=== PATIENT | female | born 1955 | race Caucasian/White ===

== ENCOUNTER → 2023-06-11 | Outpatient (CLI) | payer MEDICARE, OTHER ==
[2023-06-11 17:00] LABS: Alanine Aminotransfer (ALT/SGP 31 U/L (12-78); Albumin, Blood 4.3 g/dL (3.4-5.0); Albumin/Globulin Ratio 1.2 (0.8-1.8); Alk Phos 49 U/L (50-136); Anion Gap 10 mmol/L (6-16); Aspartate Aminotrans (AST/SGOT 21 U/L (12-37); Bilirubin, Total 0.3 mg/dL (0.1-1.0); Blood Urea Nitrogen 20 mg/dL (8-24); Bun/Creatinine Ratio 26.9 (12.0-20.0); CHOL/HDL RATIO 1.8; CO2, Blood 25 mmol/L (21-32); Calcium, Blood 9.9 mg/dL (8.5-10.1); Chloride, Blood 104 mmol/L (98-108); Cholesterol 137 mg/dL (50-200); Creatinine, Blood 0.74 mg/dL (0.40-1.00); Globulin, Blood 3.7 g/dL (2.2-4.0); Glomerular Filtration Rate 89 (60-); Glucose, Blood 118 mg/dL (70-99); HDL Cholesterol 75 mg/dL (>39); LDL/HDL RATIO 0.4; Low Density Lipoprotein Chol 32 mg/dL (0-110); Potassium, Blood 3.5 mmol/L (3.5-5.5); Sodium, Blood 139 mmol/L (136-145); Triglycerides 149 mg/dL (30-160); Very Low Density Lipoprot Chol 29 mg/dL (6-32)
== END | disposition home or self-care (01) ==
LOC: LAB SHORT 12:29 → LAB 12:29
PROVIDERS: Physician Assistant
DX: Z11.59 Encounter for screening for other viral diseases (principal); E11.22 Type 2 diabetes mellitus with diabetic chronic kidney disease; N18.9 Chronic kidney disease, unspecified; E78.2 Mixed hyperlipidemia
CPT/HCPCS: 80053; 80061; 83036; 86803

== ENCOUNTER → 2023-07-06 | Outpatient (CLI) | payer MEDICARE, OTHER ==
[2023-07-06 15:29] LABS: Microalb/Creat Ratio UR, Rand 19.194 mg/g (0.000-30.000); Microalbumin, Random Urine 23.8 mg/L (0.000-20.000)
[2023-07-09 11:13] LABS: HEPATITIS C QUANTITATION HCV Not Detected IU/mL (.)
== END | disposition home or self-care (01) ==
LOC: LAB 10:15 → LAB SHORT 10:15
PROVIDERS: Physician Assistant
DX: E11.42 Type 2 diabetes mellitus with diabetic polyneuropathy (principal); E11.22 Type 2 diabetes mellitus with diabetic chronic kidney disease; N18.9 Chronic kidney disease, unspecified; Z86.19 Personal history of other infectious and parasitic diseases
CPT/HCPCS: 82043; 82570

== ENCOUNTER → 2024-09-01 | Outpatient (CLI) | payer OTHER ==
[2024-09-01 17:33] LABS: Creatinine, Urine Random 87.5 mg/dL (27.00-270.00); Microalb/Creat Ratio UR, Rand 17.029 mg/g (0.000-30.000); Microalbumin, Random Urine 14.9 mg/L (0.000-20.000)
== END | disposition home or self-care (01) ==
LOC: LAB SHORT 15:10 → LAB 15:10
PROVIDERS: Physician Assistant
DX: E11.42 Type 2 diabetes mellitus with diabetic polyneuropathy (principal); E11.59 Type 2 diabetes mellitus with other circulatory complications; E11.69 Type 2 diabetes mellitus with other specified complication; E11.22 Type 2 diabetes mellitus with diabetic chronic kidney disease; N18.9 Chronic kidney disease, unspecified
CPT/HCPCS: 82043; 82570

== ENCOUNTER 2025-10-30 16:36 | Emergency (ER) | payer OTHER ==
[~2025-10-30] VITALS: Ht 162.6 cm; Wt 68.0 kg
[2025-10-30] MEDS ORDERED: OxyCODONE 5 mg/Acetamin 325 mg TABLET PO ONE (17:15)
[2025-10-30] MEDS ORDERED: Ondansetron HCl 2 MG / ML 2ML Vial IV ONE (19:45)
[2025-10-30 20:30] VITALS: BP 177/78
[2025-10-30] MEDS ORDERED: Morphine Sulfate 4 MG/1 ML Injection IV ONE (22:05)
== END 2025-10-30 22:29 | disposition short-term general hospital (02) ==
LOC: ER 16:36
DX: S32.434A Nondisplaced fracture of anterior column [iliopubic] of right acetabulum, initial encounter for closed fracture (principal); S32.444A Nondisplaced fracture of posterior column [ilioischial] of right acetabulum, initial encounter for closed fracture; I10 Essential (primary) hypertension; E11.9 Type 2 diabetes mellitus without complications; W01.0XXA Fall on same level from slipping, tripping and stumbling without subsequent striking against object, initial encounter; Z86.79 Personal history of other diseases of the circulatory system
CPT/HCPCS: 72192; 73502; 96374; 96375; 99285-25; A9270; J2270; J2405

== ENCOUNTER 2025-11-13 14:11 | Observation (INO) | payer OTHER ==
[~2025-11-13] VITALS: Ht 162.6 cm; Wt 68.0 kg
[2025-11-13] MEDS ORDERED: NS 1,000 ML IV SCH ×2 (14:40→16:10)
[2025-11-13] MEDS ORDERED: Ondansetron HCl 2 MG / ML 2ML Vial IV ONE (14:40)
[2025-11-13 15:03] LABS: BASOPHILS ABSOLUTE AUTO 0.09 K/mm3 (0.00-0.23); BASOPHILS PERCENT AUTO 1 % (0-2); EOSINOPHILS ABSOLUTE AUTO 0.02 K/mm3 (0.00-0.68); EOSINOPHILS PERCENT AUTO 0 % (0-6); Hematocrit 41.3 % (33.0-51.0); Hemoglobin 14.2 g/dL (11.5-16.0); IMMATURE GRAN ABSOLUTE AUTO 0.16 K/mm3 (0.00-0.10); IMMATURE GRAN PERCENT AUTO 1 % (0-1); LYMPHOCYTES ABSOLUTE AUTO 0.94 K/mm3 (0.84-5.20); LYMPHOCYTES PERCENT AUTO 5 % (21-46); MONOCYTES ABSOLUTE AUTO 0.77 K/mm3 (0.16-1.47); MONOCYTES PERCENT AUTO 5 % (4-13); Mean Corpuscular HGB Conc 34.4 g/dL (31.5-36.5); Mean Corpuscular Volume 88 fL (80-100); NEUTROPHILS ABSOLUTE AUTO 15.30 K/mm3 (1.96-9.15); NEUTROPHILS PERCENT AUTO 89 % (41-73); NRBC ABSOLUTE 0.00 K/mm3 (0.00-0.02); NRBC Auto 0.0 /100 WBC (0.0-0.2); Platelet Count 552 K/mm3 (150-400); RDW Coefficient Variation 12.7 % (11.7-14.2); RDW Standard Deviation 40.7 fL (35.1-46.3)
[2025-11-13 15:21] LABS: CORONAVIRUS COVID-19 AG Negative (NEGATIVE)
[2025-11-13 15:33] LABS: Alanine Aminotransfer (ALT/SGP 45.0 U/L (12-78); Albumin, Blood 4.4 g/dL (3.4-5.0); Albumin/Globulin Ratio 1.0 (0.8-1.8); Anion Gap 18.0 mmol/L (3-11); Aspartate Aminotrans (AST/SGOT 21.0 U/L (12-37); Bilirubin, Total 0.6 mg/dL (0.1-1.0); Blood Urea Nitrogen 16.0 mg/dL (8-24); CO2, Blood 21.0 mmol/L (21-32); Calcium, Blood 11.4 mg/dL (8.5-10.1); Chloride, Blood 97.0 mmol/L (98-108); Creatinine, Blood 0.68 mg/dL (0.40-1.00); Globulin, Blood 4.6 g/dL (2.2-4.0); Glucose, Blood 225.0 mg/dL (70-99); Potassium, Blood 3.3 mmol/L (3.5-5.5); Sodium, Blood 133.0 mmol/L (136-145); Total Protein, Blood 9.0 g/dL (6.4-8.2)
[2025-11-13] MEDS ORDERED: Metoprolol Tartrate 1 MG/ML 5 ML VIAL IV ONE (16:00)
[2025-11-13] MEDS ORDERED: Potassium Chl 20MEQ/Water100ML 100 ML IV SCH (16:10)
[2025-11-13] MEDS ORDERED: Metoprolol Tartrate 1 MG/ML 5 ML VIAL IV PRN (16:15)
[2025-11-13] MEDS ORDERED: Prochlorperazine Edisylate 10 mg Vial IV ONE (16:15)
[2025-11-13] MEDS ORDERED: Morphine Sulfate 4 MG/1 ML Injection IV ONE (16:15)
[2025-11-13] MEDS ORDERED: ALEN70 PO (17:19)
[2025-11-13] MEDS ORDERED: ACET500 PO (17:19)
[2025-11-13] MEDS ORDERED: AMLO10 PO (17:19)
[2025-11-13] MEDS ORDERED: Voltaren100 GM TOP (17:20)
[2025-11-13] MEDS ORDERED: CLOBETASOL EMOL15 G1 TOP (17:20)
[2025-11-13] MEDS ORDERED: CYCL10 PO (17:21)
[2025-11-13] MEDS ORDERED: ELIQUIS5 M2 PO (17:21)
[2025-11-13] MEDS ORDERED: GABA300 PO (17:25)
[2025-11-13] MEDS ORDERED: GABA100 PO (17:26)
[2025-11-13] MEDS ORDERED: LIDO700A20 TOP (17:26)
[2025-11-13] MEDS ORDERED: Indapamide2.5 MG PO (17:26)
[2025-11-13] MEDS ORDERED: MELA3 PO (17:27)
[2025-11-13] MEDS ORDERED: LISI20 PO (17:27)
[2025-11-13] MEDS ORDERED: METOPROLOL SUCC25 MG PO (17:28)
[2025-11-13] MEDS ORDERED: OXYC10TA19 PO (17:28)
[2025-11-13] MEDS ORDERED: MULVITA PO (17:28)
[2025-11-13] MEDS ORDERED: MIRALAX17 GM PO (17:29)
[2025-11-13] MEDS ORDERED: Crestor40 MG PO (17:29)
[2025-11-13] MEDS ORDERED: SENNA LAXATIVE8.6 MG PO (17:29)
[2025-11-13] MEDS ORDERED: Lopressor 25 mg25 MG PO (18:01)
[2025-11-13] MEDS ORDERED: Ondansetron HCl 2 MG / ML 2ML Vial IV PRN (18:10)
[2025-11-13] MEDS ORDERED: FLU VACC TS2025(65UP)/MF59C/PF 45 MCG/0.5 ML SYRINGE IM SCH (18:15)
[2025-11-13] MEDS ORDERED: Polyethylene Glycol 3350 17 gm PO SCH (21:00)
[2025-11-13 21:35] VITALS: BP 180/86
[2025-11-14 03:19] VITALS: BP 144/81
--- NOTE | 2025-11-14 04:58 | NUR ---
Admission Note: 70-yr-old, female patient with PMH of acetabular frcture 2wks ago, DM II (not on meds), HTN, total knee arthroplasty was admitted with vomitinh for multiple days, abd pain, diarrhea, and chill. PT was diagnosed with dehydration. In ED, EKG was done and was A-fib due to severe dehydration, which had been resolved prior to admission to medsur unit. Patient arrived in [facility], accompanied by an ED staff. Aptient was calm, pleasant, and answered this RN's quuestion clearly. Denied sob, chest pain, f/c, dizrrhea, dizziness, headache. Patient reported having the last vomit was yesterday. The vitals were taken, BP was elevated. It was 188/86. After admistering BP med and went down to 144/81. Administered scheduled meds with overdue meds, and prn pain med and nausea med. Patient reported the meds relieved her pain afterwards. Oriented patient to the unit and the room, completed admisison process. Currently patient is sleeping. There is no sign of distress and acute changes noted. Call crenshaw within the reach, bed alarm is on for safety. Instructed patient to call for any needs to avoid/prevent injuries and falls. Hourly round is implemented as well for safety.
[2025-11-14 05:31] LABS: BASOPHILS ABSOLUTE AUTO 0.06 K/mm3 (0.00-0.23); BASOPHILS PERCENT AUTO 1 % (0-2); EOSINOPHILS ABSOLUTE AUTO 0.07 K/mm3 (0.00-0.68); EOSINOPHILS PERCENT AUTO 1 % (0-6); Hematocrit 31.0 % (33.0-51.0); Hemoglobin 10.4 g/dL (11.5-16.0); IMMATURE GRAN ABSOLUTE AUTO 0.04 K/mm3 (0.00-0.10); IMMATURE GRAN PERCENT AUTO 0 % (0-1); LYMPHOCYTES ABSOLUTE AUTO 2.07 K/mm3 (0.84-5.20); LYMPHOCYTES PERCENT AUTO 17 % (21-46); MONOCYTES ABSOLUTE AUTO 1.40 K/mm3 (0.16-1.47); MONOCYTES PERCENT AUTO 12 % (4-13); Mean Corpuscular HGB Conc 33.5 g/dL (31.5-36.5); Mean Corpuscular Volume 89 fL (80-100); NEUTROPHILS ABSOLUTE AUTO 8.27 K/mm3 (1.96-9.15); NEUTROPHILS PERCENT AUTO 69 % (41-73); NRBC ABSOLUTE 0.00 K/mm3 (0.00-0.02); NRBC Auto 0.0 /100 WBC (0.0-0.2); Platelet Count 381 K/mm3 (150-400); RDW Coefficient Variation 13.1 % (11.7-14.2); RDW Standard Deviation 42.5 fL (35.1-46.3)
[2025-11-14 05:59] LABS: Alanine Aminotransfer (ALT/SGP 31.0 U/L (12-78); Albumin, Blood 3.3 g/dL (3.4-5.0); Albumin/Globulin Ratio 1.0 (0.8-1.8); Anion Gap 11.0 mmol/L (3-11); Aspartate Aminotrans (AST/SGOT 16.0 U/L (12-37); Bilirubin, Total 0.4 mg/dL (0.1-1.0); Blood Urea Nitrogen 12.0 mg/dL (8-24); CO2, Blood 24.0 mmol/L (21-32); Chloride, Blood 102.0 mmol/L (98-108); Creatinine, Blood 0.62 mg/dL (0.40-1.00); Globulin, Blood 3.2 g/dL (2.2-4.0); Glucose, Blood 97.0 mg/dL (70-99); Potassium, Blood 3.3 mmol/L (3.5-5.5); Sodium, Blood 134.0 mmol/L (136-145)
[2025-11-14 06:00] LABS: Calcium, Blood 8.8 mg/dL (8.5-10.1); Total Protein, Blood 6.5 g/dL (6.4-8.2)
[2025-11-14 07:38] VITALS: BP 138/77
[2025-11-14] MEDS ORDERED: Lidocaine 4% 1 Patch TOP SCH (09:00)
[2025-11-14] MEDS ORDERED: Multivitamins 1 Tab PO SCH (09:00)
--- NOTE | 2025-11-14 13:39 | NUR ---
PATIENT DC'D TO HOME WITH DAUGHTER. DC INSTRUCTIONS AND EDUCATION DISCUSSED WITH PATIENT AND COPY PROVIDED. PATIENT DENIES ANY FURTHER QUESTIONS OR CONCERNS. NO NEW MEDICATIONS ORDERED.
== END 2025-11-14 14:03 | disposition home health service (06) ==
LOC: ER 14:11 → MEDS 14:12 → ERHOLD 14:12 → MEDS 21:30
PROVIDERS: Emergency Medicine; ADMIT Family Medicine
DX: E86.0 Dehydration (principal); R11.2 Nausea with vomiting, unspecified; K52.9 Noninfective gastroenteritis and colitis, unspecified; I48.91 Unspecified atrial fibrillation; I10 Essential (primary) hypertension; I16.0 Hypertensive urgency; E87.1 Hypo-osmolality and hyponatremia; E87.6 Hypokalemia; S32.401D Unspecified fracture of right acetabulum, subsequent encounter for fracture with routine healing; X58.XXXD Exposure to other specified factors, subsequent encounter; E11.40 Type 2 diabetes mellitus with diabetic neuropathy, unspecified; M81.0 Age-related osteoporosis without current pathological fracture; Z66 Do not resuscitate; Z79.83 Long term (current) use of bisphosphonates; Z79.01 Long term (current) use of anticoagulants; Z79.899 Other long term (current) drug therapy
CPT/HCPCS: 36415; 80053; 83690; 83735; 85025; 87428-QW; 93005; 93010; 96361; 96365; 96366; 96375; 96376; 97116; 97161; 97165; 99285-25; A6590; A9270; G0378; J0780; J2270; J2405; J3480; J7030; J7120